=== PATIENT | male | born 1945 | race Caucasian/White ===

== ENCOUNTER 2016-11-06 21:37 | Emergency (ER) | payer MEDICARE, BC ==
[~2016-11-06] VITALS: Ht 170.2 cm; Wt 80.7 kg
[~2016-11-06 21:37] MED LIST: ASPI325T8 PO; CRESTOR10 MG PO; EZET10TA18 PO; NIAC500T PO; OMEG300C PO
[2016-11-06] MEDS ORDERED: IV NORMAL SALINE 1000ML BAG 1,000 ML IV ONE (22:00)
[2016-11-06] MEDS ORDERED: ASPIRIN ENTERIC COATED 325 MG TABLET.DR. PO ONE ×2 (22:30)
[2016-11-06 22:37] LABS: BASO # 0.1 x10^3/uL (0.0-0.2); BASO % 1 % (0-3); EOS % 1 % (0-3); HEMATOCRIT 43.7 % (39.0-53.0); HEMOGLOBIN 15.5 g/dL (13.0-17.5); LYMPH # 1.7 x10^3/uL (1.0-4.8); LYMPH % 27 % (24-48); MEAN CORPUSCULAR HEMOGLOBIN 35 pg (25-35); MEAN CORPUSCULAR HGB CONC 35 g/dL (31-37); MEAN CORPUSCULAR VOLUME 99 fL (79-100); MONO % 8 % (0-9); NEUT % 63 % (31-73); PLATELET COUNT 160 x10^3/uL (140-400); RED BLOOD COUNT 4.43 x10^6/uL (4.30-5.70); RED CELL DISTRIBUTION WIDTH 13.4 % (11.5-14.5); WHITE BLOOD COUNT 6.3 x10^3/uL (4.0-11.0)
--- NOTE | 2016-11-06 22:37 | PHYS DOC ---
Past Medical History Past Medical History: Angina, Hypertension Past Surgical History: Other Additional Past Surgical Histo: "bipass x 5 in 1998" Alcohol Use: Heavy Drug Use: None Adult General Chief Complaint Chief Complaint: CHEST PAIN HPI HPI Patient is a 71 year old male presenting to the emergency department for evaluation of syncope and chest pain. Patient admits to drinking bourbon since Wednesday and he is difficult to get history from as he is confrontational and quite belligerent. He states that he has no pain whatsoever and that he does not want to be here and says he has no reason for being here as he wants to go democrat. Family said that they brought him here because he was rubbing the left side of his chest and they're concerned that he was having chest pain than the head stood him up to take him somewhere and said that she had a syncopal episode upon standing up. Reportedly he passed out for at least treated 5 minutes as I called the ambulance and he was still passed out when the ambulance arrived. They did some EKGs and they prefer to take him to the hospital himself. Patient has a CABG scar and confirms that he did have a CABG in 1998 and he reports following with [facility] with a stress test one month ago which he passed. He is in no obvious distress with normal vital signs. Review of Systems Review of Systems Constitutional: Denies fever or chills [] Eyes: Denies change in visual acuity, redness, or eye pain [] HENT: Denies nasal congestion or sore throat [] Respiratory: Denies cough or shortness of breath [] Cardiovascular: No CP GI: Denies abdominal pain, nausea, vomiting, bloody stools or diarrhea [] : Denies dysuria or hematuria [] Musculoskeletal: Denies back pain or joint pain [] Integument: Denies rash or skin lesions [] Neurologic: Denies headache, focal weakness or sensory changes [] Current Medications Current Medications Current Medications Medications (Trade) Dose Ordered Sig/Effie Start Time Stop Time Status Last Admin Dose Admin Aspirin (Ecotrin) 325 mg STK-MED ONCE 11/06/16 22:30 11/06/16 22:31 DC Sodium Chloride 1,000 ml @ 1,000 mls/hr 1X ONCE 11/06/16 22:00 11/06/16 22:59 DC 11/06/16 22:38 1,000 MLS/HR Allergies Allergies Allergies Coded Allergies Type Severity Reaction Last Updated Verified No Known Drug Allergies 07/22/13 No Physical Exam Physical Exam Constitutional: Well developed, well nourished, no acute distress, non-toxic appearance. [] HENT: Normocephalic, atraumatic, bilateral external ears normal, oropharynx moist, no oral exudates, nose normal. [] Eyes: PERRLA, EOMI, conjunctiva normal, no discharge. [] Neck: Normal range of motion, no tenderness, supple, no stridor. [] Cardiovascular:Heart rate regular rhythm, no murmur [] Lungs & Thorax: Bilateral breath sounds clear to auscultation [] Abdomen: Bowel sounds normal, soft, no tenderness, no masses, no pulsatile masses. [] Skin: Warm, dry, no erythema, no rash. [] Back: No tenderness, no CVA tenderness. [] Extremities: No tenderness, no cyanosis, no clubbing, ROM intact, no edema. [] Neurologic: Alert and oriented X 3, normal motor function, normal sensory function, no focal deficits noted. [] Current Patient Data Vital Signs Vital Signs Date Time Temp Pulse Resp B/P (MAP) Pulse Ox O2 Delivery O2 Flow Rate FiO2 11/06/16 23:00 62 135/72 (93) 98 11/06/16 21:55 97.4 20 Room Air 97.4 Lab Values Laboratory Tests Test 11/06/16 22:30 White Blood Count 6.3 x10^3/uL (4.0-11.0) Red Blood Count 4.43 x10^6/uL (4.30-5.70) Hemoglobin 15.5 g/dL (13.0-17.5) Hematocrit 43.7 % (39.0-53.0) Mean Corpuscular Volume 99 fL (79-100) Mean Corpuscular Hemoglobin 35 pg (25-35) Mean Corpuscular Hemoglobin Concent 35 g/dL (31-37) Red Cell Distribution Width 13.4 % (11.5-14.5) Platelet Count 160 x10^3/uL (140-400) Neutrophils (%) (Auto) 63 % (31-73) Lymphocytes (%) (Auto) 27 % (24-48) Monocytes (%) (Auto) 8 % (0-9) Eosinophils (%) (Auto) 1 % (0-3) Basophils (%) (Auto) 1 % (0-3) Neutrophils # (Auto) 4.0 x10^3uL (1.8-7.7) Lymphocytes # (Auto) 1.7 x10^3/uL (1.0-4.8) Monocytes # (Auto) 0.5 x10^3/uL (0.0-1.1) Eosinophils # (Auto) 0.1 x10^3/uL (0.0-0.7) Basophils # (Auto) 0.1 x10^3/uL (0.0-0.2) Prothrombin Time 13.3 SEC (11.7-14.0) Prothrombin Time INR 1.1 (0.8-1.1) PTT 26 SEC (24-38) Sodium Level 145 mmol/L (136-145) Potassium Level 3.7 mmol/L (3.5-5.1) Chloride Level 105 mmol/L (98-107) Carbon Dioxide Level 27 mmol/L (21-32) Anion Gap 13 (6-14) Blood Urea Nitrogen 9 mg/dL (8-26) Creatinine 0.7 mg/dL (0.7-1.3) Estimated GFR (Cockcroft-Gault) 111.8 BUN/Creatinine Ratio 13 (6-20) Glucose Level 92 mg/dL (70-99) Calcium Level 8.6 mg/dL (8.5-10.1) Magnesium Level 2.3 mg/dL (1.8-2.4) Total Bilirubin 0.4 mg/dL (0.2-1.0) Aspartate Amino Transferase (AST) 41 U/L (15-37) H Alanine Aminotransferase (ALT) 40 U/L (16-63) Alkaline Phosphatase 51 U/L (46-116) Troponin I Quantitative < 0.017 ng/mL (0.000-0.055) RX-[id number] Natriuretic Peptide 172 pg/mL (0-124) H Total Protein 7.3 g/dL (6.4-8.2) Albumin 3.9 g/dL (3.4-5.0) Albumin/Globulin Ratio 1.1 (1.0-1.7) Lipase 123 U/L (73-393) Ethyl Alcohol Level 220 mg/dL (0-10) H Laboratory Tests 11/06/16 22:30 Laboratory Tests 11/06/16 22:30 EKG EKG 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 He is in normal sinus rhythm at [address] segments and biphasic T-wave in lead V6. Radiology/Procedures Radiology/Procedures Normal heart size normal mediastinum and no free air pneumothorax or opacity Course & Med Decision Making Course & Med Decision Making Patient's labs and workup are unremarkable. Patient is very hostile towards me on reexamination saying that he is going home no matter what I said. Tried speaking to him about being admitted but he kept cutting me off and essentially refused to talk to me about admission. Will to discussed the risks and benefits as he was talking about having is going to have sex with women in his backyard. Family tried calming down seconds speak to him however he would not. Given he is essentially refusing any further medical care he'll be discharged under his own power. Patient ambulated out of the emergency department under his own power. Dragon Disclaimer Dragon Disclaimer This electronic medical record was generated, in whole or in part, using a voice recognition dictation system. Departure Departure Impression: Primary Impression: Chest pain Additional Impressions: Syncope and collapse Alcohol abuse Disposition: 01 HOME, SELF-CARE Condition: STABLE Referrals: KEI VEGA MD (PCP) Patient Instructions: Syncope Problem Qualifiers Primary Impression: Chest pain Chest pain type: unspecified Qualified Codes: R07.9 - Chest pain, unspecified JOSE ALLEN DO Nov 06, 2016 22:37
[2016-11-06 22:46] LABS: CALCIUM 8.6 mg/dL (8.5-10.1); CREATININE 0.7 mg/dL (0.7-1.3); GFR 111.8; POTASSIUM 3.7 mmol/L (3.5-5.1)
[2016-11-06 22:47] LABS: INR 1.1 (0.8-1.1); PROTHROMBIN TIME PATIENT 13.3 SEC (11.7-14.0)
[2016-11-06 22:53] LABS: ALBUMIN 3.9 g/dL (3.4-5.0); ALBUMIN/GLOBULIN RATIO 1.1 (1.0-1.7); MAGNESIUM 2.3 mg/dL (1.8-2.4); TOTAL BILIRUBIN 0.4 mg/dL (0.2-1.0); TOTAL PROTEIN 7.3 g/dL (6.4-8.2)
[2016-11-06 23:36] VITALS: BP 146/76
--- NOTE | 2016-11-07 08:00 | RAD ---
Single view chest History:Chest pain today An AP view of the chest is submitted. Comparison: 07/22/2013. Findings: There again has been a median sternotomy. There is no significant infiltrate, pleural effusion, or pneumothorax. The pericardial cardiac silhouette is within normal limits in size. The trachea is in the midline. There is degenerative change of the shoulders greater on the left. Impression: There is no evidence of acute cardiopulmonary disease.
--- NOTE | 2016-11-07 11:17 | EKG ---
[facility] [address] [place] [address] Test Date: 2016-11-06 Test Time: 21:44:15 Pat Name: JOSE BESS Department: Room: Gender: M Supervisor Nurse: : 1945 Requested By: JOSE ALLEN Order Number: [id number] Reading MD: Santi Joe Measurements Intervals [place] Rate: 65 P: 35 MO: 194 QRS: -40 QRSD: 152 T: 16 QT: 438 QTc: 456 Interpretive Statements SINUS RHYTHM RBBB LAFB NON-SPECIFIC ST/T CHANGES Electronically Signed On 11-10-2016 9:46:57 CDT by Santi Joe
== END 2016-11-06 23:50 | disposition home or self-care (01) ==
LOC: ER 21:37
DX: R55 Syncope and collapse (principal); R07.89 Other chest pain; F10.10 Alcohol abuse, uncomplicated; I10 Essential (primary) hypertension; Z95.1 Presence of aortocoronary bypass graft
CPT/HCPCS: 36415; 71010; 80053; 83690; 83735; 83880; 84484; 85025; 85610; 85730; 93005; 96360; 99285; G0480; J7030